=== PATIENT | female | born 1975 | race Caucasian/White ===

== ENCOUNTER 2020-11-04 10:30 | Day surgery (SDC) | payer OTHER ==
[2020-10-30 16:18] LABS: Hemoglobin 14.7 g/dL (12.0-15.5); Mean Corpuscular HGB CONC 33.1 g/dL (32.0-36.0); Mean Corpuscular Hemoglobin 29.1 pg (27.0-33.0); Mean Corpuscular Volume 87.9 fl (81.6-98.3); Mean Platelet Volume 9.3 fl (7.4-10.4); Platelet Count 309 10x3/uL (150-450); RBC Distribution Width 12.8 % (11.5-14.5); Red Blood Cell (RBC) Count 5.05 10x6/uL (3.90-5.03); White Blood Cell (WBC) Count 7.4 10x3/uL (3.5-10.5)
[2020-10-30 16:53] LABS: BHCG - Serum Negative (NEGATIVE); Pregs Control Background? CLEAR/WHITE (CLR/WHITE); Pregs Control Bar Appear? YES (CONTROL BAR)
[2020-10-31 02:10] LABS: SARS-CoV-2 PCR by NAA Not Detected (NotDetected)
[2020-11-03 11:27] VITALS: BMI 24.5
[2020-11-04] MEDS ORDERED: Lidocaine 1% MPF 2 ML VIAL ONE (11:11)
[2020-11-04] MEDS ORDERED: Famotidine/PF 20 mg/2ml Vial ONE (11:25)
[2020-11-04] MEDS ORDERED: Gabapentin 300 MG CAP ONE (11:25)
[2020-11-04] MEDS ORDERED: CeleCOXIB 100 MG CAP PO SCH (11:45)
[2020-11-04] MEDS ORDERED: Lidocaine 0.5%/Epinephrine 1:200,000 50 ml Vial ONE (13:13)
[2020-11-04] MEDS ORDERED: PROPOFOL 20 ML ONE (13:30)
[2020-11-04] MEDS ORDERED: Fentanyl 100 MCG/2 ML VIAL ONE ×2 (13:30→15:02)
[2020-11-04] MEDS ORDERED: Lidocaine 1% PF 5 ML VIAL ONE (13:30)
[2020-11-04] MEDS ORDERED: Dexamethasone 20 MG/5 ML VIAL ONE (13:56)
[2020-11-04] MEDS ORDERED: Ondansetron PF 4 MG/2 ML Vial ONE (14:31)
[2020-11-04] MEDS ORDERED: Ketorolac Tromethamine 30 MG/ML VIAL ONE (14:32)
[2020-11-04] MEDS ORDERED: HYDROcodone/Acetaminophen 5/325 mg Tablet ONE (15:47)
== END 2020-11-04 16:15 | disposition home or self-care (01) ==
LOC: CSHSDC 10:30
PROVIDERS: ATTEND Student in an Organized Health Care Education/Training Program
PROC: 0JQC0ZZ Repair Pelvic Region Subcutaneous Tissue and Fascia, Open Approach (ICD-10-PCS; principal; 2020-11-04)
DX: N81.2 Incomplete uterovaginal prolapse (principal); K51.90 Ulcerative colitis, unspecified, without complications; J45.909 Unspecified asthma, uncomplicated; Z79.899 Other long term (current) drug therapy; Z20.822 Contact with and (suspected) exposure to COVID-19
CPT/HCPCS: 36415; 84703; 85027; 86850; 86900; 86901; 87635; J0690; J1100; J1885; J2001; J2405; J2704; J3010; S0028; U0003; U0005

== ENCOUNTER → 2021-08-02 | Day surgery (SDC) | payer OTHER ==
[2021-08-02 10:22] LABS: SARS-CoV-2 NAA Rapid Test Not Detected (NotDetected)
== END ==
LOC: CSHER/OP 09:29
PROVIDERS: ATTEND Family Medicine
DX: Z20.822 Contact with and (suspected) exposure to COVID-19 (principal)
CPT/HCPCS: U0002

== ENCOUNTER 2023-06-30 10:34 | Emergency (ER) | payer BC ==
[2023-06-30] MEDS ORDERED: fentaNYL 50 mcg/mL 1 mL Vial ONE ×2 (10:49→10:50)
[2023-06-30] MEDS ORDERED: Morphine 4 MG/ML VIAL ONE ×3 (11:00→15:41)
[2023-06-30] MEDS ORDERED: Ondansetron PF 4 MG/2 ML Vial ONE (11:00)
[2023-06-30 11:18] LABS: #Basophils 0.1 10x3/uL (0.0-0.2); #Eosinphils 0.3 10x3/uL (0.0-0.5); #Monocytes 1.1 10x3/uL (0.0-1.1); #Neutrophils 7.6 10x3/uL (1.5-8.4); %Basophils 0.5 % (0.0-2.0); %Eosinophils 2.2 % (0.0-6.0); %Lymphocytes 27.5 % (18.0-47.0); %Monocytes 8.7 % (0.0-10.0); %Neutrophils 60.6 % (40.0-75.0); Hematocrit 43.2 % (34.9-44.5); Hemoglobin 14.4 g/dL (12.0-15.5); Mean Corpuscular HGB CONC 33.3 g/dL (32.0-36.0); Mean Corpuscular Hemoglobin 31.4 pg (27.0-33.0); Mean Corpuscular Volume 94.1 fl (81.6-98.3); Mean Platelet Volume 8.6 fl (7.4-10.4); Platelet Count 354 10x3/uL (150-450); RBC Distribution Width 12.2 % (11.5-14.5); Red Blood Cell (RBC) Count 4.59 10x6/uL (3.90-5.03); White Blood Cell (WBC) Count 12.5 10x3/uL (3.5-10.5)
[2023-06-30 11:25] LABS: BHCG - Serum Negative (NEGATIVE); Pregs Control Background? CLEAR/WHITE (CLR/WHITE); Pregs Control Bar Appear? YES (CONTROL BAR)
[2023-06-30 11:36] LABS: ALT (SGPT) 16 U/L (8-55); AST (SGOT) 21 U/L (5-34); Albumin 4.1 g/dL (3.5-5.0); Alkaline Phosphatase 35 U/L (40-110); Anion Gap 14 mmol/L (10-20); BUN (Urea Nitrogen) 18 mg/dL (7.0-18.7); Bilirubin, Total 0.3 mg/dL (0.2-1.2); Calc. Creatinine Clearance 0 mL/min (70-130); Calcium 8.9 mg/dL (7.8-10.44); Carbon Dioxide 25 mmol/L (22-29); Chloride 105 mmol/L (98-107); Estimated GFR 89; Globulin 2.9 g/dL (2.4-3.5); Glucose 48 mg/dL (70-105); Potassium 3.7 mmol/L (3.5-5.1); Sodium 140 mmol/L (136-145)
[2023-06-30] MEDS ORDERED: KETAMINE 100 MG/ML (5ML VIAL) ONE (11:49)
[2023-06-30] MEDS ORDERED: Iopamidol 370 76% 100 ML VIAL ONE (12:09)
[2023-06-30] MEDS ORDERED: HYDROmorphone 0.5 MG/0.5 ML SYRINGE ONE (16:46)
== END 2023-06-30 18:57 | disposition short-term general hospital (02) ==
LOC: CSHERS 10:34
DX: R42 Dizziness and giddiness (principal); M99.88 Other biomechanical lesions of rib cage; H53.8 Other visual disturbances; R52 Pain, unspecified
CPT/HCPCS: 36416; 70496; 70498; 71046; 80053; 84703; 85025; 93005; 96361; 96374; 96375; 96376; J1170; J2270; J2405; J3010; Q9967

== ENCOUNTER 2025-04-08 11:14 | Outpatient (CLI) | payer BC | END 2025-04-08 11:15 | disposition home or self-care (01) | LOC: CSHULT 11:14 | PROVIDERS: ATTEND Physician Assistant | DX: R92.8 Other abnormal and inconclusive findings on diagnostic imaging of breast (principal) ==